=== PATIENT | female | born 1995 | race Caucasian/White ===

== ENCOUNTER → 2016-11-03 | Outpatient (REF) | payer OTHER | LOC: M LAB REF 16:39 | PROVIDERS: ATTEND Advanced Practice Midwife | DX: O36.80X0 Pregnancy with inconclusive fetal viability, not applicable or unspecified (principal) ==

== ENCOUNTER 2016-12-05 08:42 | Emergency (ER) | payer OTHER ==
[~2016-12-05] VITALS: Ht 162.6 cm; Wt 54.5 kg
[2016-12-05] MEDS ORDERED: PRENTAB55 PO (08:52)
[2016-12-05] MEDS ORDERED: ACETAMINOPHEN TAB 650MG DOSE (2X325MG) PO ONE (09:15)
[2016-12-05 09:31] LABS: BASO % 0.6 % (0.0-1.0); EOS # 0.2 K/mm3 (0.0-0.50); EOS % 2.9 % (0.0-3.0); LARGE UNSTAINED CELL # 0.1 K/mm3 (0.0-0.4); LARGE UNSTAINED CELL % 1.7 % (0.0-4.0); LYMPH # 2.2 K/mm3 (1.5-6.5); LYMPH % 38.4 % (24.0-44.0); MEAN CORPUSCULAR HEMOGLOBIN 31.5 pg (27.0-33.0); MEAN CORPUSCULAR HGB CONC 33.1 g/dl (32.0-36.5); MEAN CORPUSCULAR VOLUME 95.3 fl (80.0-96.0); MONO # 0.3 K/mm3 (0.0-0.8); MONO % 5.1 % (0.0-5.0); NEUTROPHILS # 2.9 K/mm3 (1.8-7.7); NEUTROPHILS % 51.2 % (36.0-66.0); PLATELET COUNT, AUTOMATED 231 k/mm3 (150-450); RED CELL DISTRIBUTION WIDTH 12.4 % (11.5-14.5); WHITE BLOOD COUNT 5.7 K/mm3 (4.0-10.0)
[2016-12-05 10:20] LABS: ANION GAP 4 MEQ/L (8-16); BLOOD UREA NITROGEN 10 MG/DL (7-18); CARBON DIOXIDE LEVEL 27 MEQ/L (21-32); CHLORIDE LEVEL 105 MEQ/L (98-107); CREATININE FOR GFR 0.71 MG/DL (0.55-1.02); GLUCOSE, FASTING 91 MG/DL (70-105); HCG, SERUM QUANTITATIVE 7382 MIU/ML; POTASSIUM SERUM 3.8 MEQ/L (3.5-5.1); SODIUM LEVEL 136 MEQ/L (136-145)
--- NOTE | 2016-12-05 10:25 | REP ---
Clinical: with pelvic pain. Technique: Transabdominal and transvaginal first trimester obstetrical ultrasound with color Doppler evaluation. Findings: Bladder measures approximately 8.9 x 3.0 x 5.3 cm. Anteverted uterus measures 9.1 x 4.9 x 5.6 cm and includes intrauterine gestational sac with yolk sac and heterogeneous debris without pole. Mean sac diameter of 7 mm corresponds to 4 weeks 5 days gestational age. Differential diagnosis includes early as well as spontaneous . Maternal ovaries are normal in appearance and vascularity. Right ovary measures 3.6 x 1.5 x 2.8 cm; RI = 0.59. Left ovary measures 4.1 x 2.0 x 2.9 cm; RI = 0.50. No pelvic fluid or adnexal mass lesion. Impression: Gestational sac as described above without pole. Differential diagnosis includes early as well as missed . Ectopic cannot be excluded. Correlation with serial HCG levels recommended. Signed by Mark Berry MD 12/05/2016 10:16 A
[2016-12-05 10:57] VITALS: BP 129/75
[2017-03-26] MEDS ORDERED: ACET50TA PO (14:18)
== END 2016-12-05 10:59 | disposition home or self-care (01) ==
LOC: M ED 08:42
DX: O99.89 Other specified diseases and conditions complicating pregnancy, childbirth and the puerperium (principal); R10.2 Pelvic and perineal pain; Z3A.00 Weeks of gestation of pregnancy not specified; Z79.899 Other long term (current) drug therapy

== ENCOUNTER → 2016-12-07 | Outpatient (CLI) | payer OTHER ==
[~2016-12-07] MED LIST: ACET50TA PO; PRENTAB55 PO
== END ==
LOC: M LAB 09:21
PROVIDERS: ATTEND Student in an Organized Health Care Education/Training Program
DX: O20.0 Threatened abortion (principal)

== ENCOUNTER 2017-04-23 19:42 | Emergency (ER) | payer OTHER ==
[~2017-04-23] VITALS: Ht 160 cm; Wt 59.1 kg
[2017-04-23] MEDS ORDERED: PROMETHAZINE INJ 25 MG/ML VIAL (J2550) IV ONE (20:45)
[2017-04-23] MEDS ORDERED: diphenhydrAMINE INJ 50MG/ML VIAL (J1200) IV ONE (20:45)
[2017-04-23] MEDS ORDERED: METOCLOPRAMIDE INJ 10MG/2ML VIAL (J2765) IV ONE (21:00)
[2017-04-23 21:28] LABS: BASO % 0.1 % (0.0-1.0); EOS % 0.2 % (0.0-3.0); IMMATURE GRANULOCYTE % 0.5 % (0-0); LYMPH # 0.9 10^3/uL (1.5-6.5); LYMPH % 7.4 % (24.0-44.0); MEAN CORPUSCULAR HEMOGLOBIN 30.6 pg (27.0-33.0); MEAN CORPUSCULAR HGB CONC 33.5 g/dl (32.0-36.5); MEAN CORPUSCULAR VOLUME 91.4 fl (80.0-96.0); MONO # 1.3 10^3/uL (0.0-0.8); MONO % 10.9 % (0.0-5.0); NEUTROPHILS # 9.9 10^3/uL (1.8-7.7); NEUTROPHILS % 80.9 % (36.0-66.0); PLATELET COUNT, AUTOMATED 256 10^3/uL (150-450); WHITE BLOOD COUNT 12.2 10^3/uL (4.0-10.0)
[2017-04-23 22:04] LABS: ALBUMIN 2.5 GM/DL (3.2-5.2); ALBUMIN/GLOBULIN RATIO 0.64 (1.00-1.93); ALKALINE PHOSPHATASE 179 U/L (45-117); ALT/SGPT 9 U/L (12-78); ANION GAP 11 MEQ/L (8-16); AST/SGOT 6 U/L (7-37); BILIRUBIN,TOTAL 0.3 MG/DL (0.2-1.0); BLOOD UREA NITROGEN 7 MG/DL (7-18); CALCIUM LEVEL 8.5 MG/DL (8.5-10.1); CARBON DIOXIDE LEVEL 22 MEQ/L (21-32); CHLORIDE LEVEL 102 MEQ/L (98-107); CREATININE FOR GFR 0.57 MG/DL (0.55-1.02); GLUCOSE, FASTING 76 MG/DL (70-105); HCG, SERUM QUANTITATIVE 34387 MIU/ML; POTASSIUM SERUM 3.3 MEQ/L (3.5-5.1); SODIUM LEVEL 135 MEQ/L (136-145); TOTAL PROTEIN 6.4 GM/DL (6.4-8.2)
[2017-04-23] MEDS ORDERED: KEFL500C17 PO (22:34)
[2017-04-23] MEDS ORDERED: DRAM50TA7 PO (22:35)
[2017-04-23 22:41] VITALS: BP 95/53
[2017-04-23] MEDS ORDERED: ACETAMINOPHEN TAB 650MG DOSE (2X325MG) PO ONE (22:45)
[2017-04-23] MEDS ORDERED: CEPHALEXIN 500 MG CAP PO ONE (22:45)
== END 2017-04-23 22:53 | disposition home or self-care (01) ==
LOC: M ED 19:42
DX: N39.0 Urinary tract infection, site not specified (principal); R11.10 Vomiting, unspecified
CPT/HCPCS: 80053; 81001; 83690; 84702; 85025; 96374; 96375; 99284; J1200; J2765

== ENCOUNTER 2017-05-12 21:26 | Inpatient (IN) | payer OTHER ==
[~2017-05-12] VITALS: Ht 160 cm; Wt 60.6 kg
[~2017-05-12 21:26] MED LIST changes: +DRAM50TA7 PO; +KEFL500C17 PO
[2017-05-12 21:44] VITALS: BP 106/57
[2017-05-12] MEDS ORDERED: MORPHINE 2 MG/ML 1ML SYRINGE IV PRN (22:45)
[2017-05-12] MEDS: ACETAMINOPHEN 500 MG TAB PO PRN (23:07)
[2017-05-12] MEDS: CEFTRIAXONE SOD 1 GM in APPROPRIATE DILUENT 1 EA IV SCH (23:13)
[2017-05-12 23:28] VITALS: BP 107/54
[2017-05-12] MEDS ORDERED: LR 1,000 ML IV SCH (23:30)
[2017-05-13] VITALS (8 sets, daily range): BP systolic 87–120; BP diastolic 42–59
[2017-05-13 00:44] LABS: MEAN CORPUSCULAR HEMOGLOBIN 30.7 pg (27.0-33.0); MEAN CORPUSCULAR HGB CONC 33.2 g/dl (32.0-36.5); MEAN CORPUSCULAR VOLUME 92.6 fl (80.0-96.0); PLATELET COUNT, AUTOMATED 226 10^3/uL (150-450); RED CELL DISTRIBUTION WIDTH 12.6 % (11.5-14.5)
[2017-05-13 08:01] LABS: PERCENT SATURATION 3.7 % (13.2-45.0)
[2017-05-13] MEDS: PRENATAL VITAMINS CHEWABLE TABLET PO SCH (09:00)
[2017-05-13] MEDS: ACETAMINOPHEN 500 MG TAB PO PRN ×2 (09:03→23:42)
[2017-05-13] MEDS ORDERED: FERROUS SULFATE 325MG TAB PO ONE (19:15)
[2017-05-13] MEDS ORDERED: DOCUSATE SODIUM 100 MG CAP PO ONE (19:15)
[2017-05-13] MEDS: CEFTRIAXONE SOD 1 GM in APPROPRIATE DILUENT 1 EA IV SCH (23:40)
[2017-05-14 02:00] VITALS: BP 105/53
[2017-05-14 06:00] VITALS: BP 85/45
[2017-05-14 07:14] LABS: MEAN CORPUSCULAR HEMOGLOBIN 29.6 pg (27.0-33.0); MEAN CORPUSCULAR HGB CONC 32.3 g/dl (32.0-36.5); MEAN CORPUSCULAR VOLUME 91.9 fl (80.0-96.0); PLATELET COUNT, AUTOMATED 221 10^3/uL (150-450); RED CELL DISTRIBUTION WIDTH 12.8 % (11.5-14.5); WHITE BLOOD COUNT 8.9 10^3/uL (4.0-10.0)
--- NOTE | 2017-05-14 08:02 | IPNPDOC ---
Text Note Date of Service The patient was seen on 05/14/17. NOTE Pyelonephritis Progress Note Cleve is a 21y/o G1 @ 28+wks now HD#3, admitted overnight on 05/12, for inpatient treatment of pyelonephritis with fever/flank pain and positive urinalysis with WBC count of 16. She was initiated on IV Rocephin. She has had several previous UTIs in and has been non-compliant on her PNV, at time of admission her H/H was 8.7/26.2. Overnight she had a fever to 100.9F at 22:00. She notes she never felt "warm", but rather, has felt chills and then sweaty after Tylenol broke her fever. Tolerating regular diet and voiding spontaneously without issue. Feels good movement. No VB/LOF/CTX. Her back pain is much improved. O: VSS, fever to 100.9F at 22:00 last night Gen: A&Ox3, NAD Adomen: soft, ND, NT, gravid Back: No CVAT bilaterally. Extremities: no pain with palpation of calves NST 08 14 Dec: reassuring for gest age, bl 140's, +accels, -decels, mod cristhian. No ctx. Labs: 05/14 CBC: 8.9/8/24.8/221 Hemoglobin electrophoresis pending 05/13 CBC: 16/8.7/26.2/226 urinalysis: negative nitrite, but 3+LE, WBC TNTC and 2+ bacteria iron 13, TIBC 348, transferrin % sat 37, ferritin 106 Assessment: Cleve is a 21y/o G1 @ 28+wks now HD#3 being treated with IV abx (rocephin) for pyelonephritis. Vitals wnl with exception of fever at 22:00 to 100.9F which broke with tylenol. Reassuring status on NST. Anemia noted on admission. WBC count decreased from 16 to 8.9, back pain improved. Hemodynamically stable. Plan: -Continue routine antepartum care -IV rocephin until at least 24-48 afebrile -regular diet -tylenol prn pain/fever -NSTs daily -PNV, ferrous sulfate, colace -Hgb electrophoresis pending MD Cholo Espinoza VS,Juanito, I+O VS, Juanito, I+O Laboratory Tests 05/14/17 06:57 Red Blood Count 2.70 L, Mean Corpuscular Volume 91.9, Mean Corpuscular Hemoglobin 29.6, Mean Corpuscular Hemoglobin Concent 32.3, Red Cell Distribution Width 12.8 Vital Signs Date Time Temp Pulse Resp B/P (MAP) Pulse Ox O2 Delivery O2 Flow Rate FiO2 05/14/17 06:00 96.6 05/14/17 06:00 85 17 85/45 (58) 98 Room Air I&O- Last 24 Hours up to 6 AM 05/15/17 06:00 Output Total 400 ml Balance -400 ml Moon Hameed MD May 14, 2017 08:02
[2017-05-14] MEDS: PRENATAL VITAMINS CHEWABLE TABLET PO SCH (08:24)
[2017-05-14] MEDS: DOCUSATE SODIUM 100 MG CAP PO SCH ×2 (08:24→20:40)
[2017-05-14] MEDS: FERROUS SULFATE 325MG TAB PO SCH ×2 (08:24→20:40)
[2017-05-14 10:13] VITALS: BP 98/55
[2017-05-14 17:48] VITALS: BP 103/52
[2017-05-14 22:17] VITALS: BP 110/68
[2017-05-14] MEDS: CEFTRIAXONE SOD 1 GM in APPROPRIATE DILUENT 1 EA IV SCH (22:46)
[2017-05-15 02:15] VITALS: BP 102/52
[2017-05-15] MEDS ORDERED: CEPHALEXIN 500 MG CAP PO SCH (06:00)
[2017-05-15 06:20] VITALS: BP 94/55
--- NOTE | 2017-05-15 07:33 | DS.PDOC ---
Discharge Summary General Date of Admission May 12, 2017 at 23:01 Date of Discharge [id number] Discharge Summary Discharge Summary Admission Diagnosis: Pyelonephritis at ~28 weeks Discharge Diagnosis: LUKAS Condition: stable, improved Meds on discharge: Keflex 500 mg QID 10 days then transition to Macrobid 100 mg QHS Hospital Course: 21y/o @ now ~28 wks gestation admitted on 05/12 for pyelonephritis. On Ceftriaxone q24hrs for treatment. Urine culture returned as E Coli, pansensitive. Chills/fever resolved much more than 24 hours, last T was 110.9 at 2200 on 14DEC. No further flank pain. OOB/Ambulating without issues. Home recommendations: Macrobid until 37-38 weeks after finishing Keflex treatment course. F/U in office next week. Sessions Vital Signs/I&Os Vital Signs Date Time Temp Pulse Resp B/P (MAP) Pulse Ox O2 Delivery O2 Flow Rate FiO2 05/15/17 06:20 96.2 93 19 94/55 (68) 05/14/17 06:00 98 Room Air Microbiology Microbiology 05/12/17 Urine Culture - Final, Complete Escherichia Coli Discharge Medications Scheduled PRN Acetaminophen (Mapap) 500 Mg Tab, 1,000 MG PO for PAIN OR FEVER, (Reported) Allergies Coded Allergies: No Known Allergies (Unverified , 12/05/16) SESSIONSMORENA MD May 15, 2017 07:33
--- NOTE | 2017-05-15 07:37 | IPNPDOC ---
Text Note Date of Service The patient was seen on 05/15/17. NOTE Pyelonephritis Progress Note Cleve is a 21y/o G1 @ 28+wks now HD#4, admitted overnight on 05/12, for inpatient treatment of pyelonephritis with fever/flank pain and positive urinalysis with WBC count of 16. She was initiated on IV Rocephin. She has had several previous UTIs in and has been non-compliant on her PNV. Overnight she has had no fevers, last fever 100.9F at 22:00 on 14DEC. Now feels completely better. Tolerating regular diet and voiding spontaneously without issue. Feels good movement. No VB/LOF/CTX. O: VSS >24 hrs Gen: A&Ox3, NAD Adomen: soft, ND, NT, gravid Back: No CVAT bilaterally. Extremities: no CCE. Labs: 05/14 CBC: 8.9/8/24.8/221 05/13 CBC: 16/8.7/26.2/226 urinalysis: negative nitrite, but 3+LE, WBC TNTC and 2+ bacteria iron 13, TIBC 348, transferrin % sat 37, ferritin 106 Assessment: Cleve is a 21y/o G1 @ 28+wks now HD#3 being treated with IV abx (rocephin) for pyelonephritis. Vitals wnl. Reassuring status on NST. Anemia noted on admission. WBC count decreased from 16 to 8.9, back pain improved. Hemodynamically stable. Discharge on Keflex 10 days and then Macrobid 1 tab qhs until 37-38 weeks. Ferrous Sulfate as well. VS,Fishbone, I+O VS, Fishbone, I+O Vital Signs Date Time Temp Pulse Resp B/P (MAP) Pulse Ox O2 Delivery O2 Flow Rate FiO2 05/15/17 06:20 96.2 93 19 94/55 (68) 05/14/17 06:00 98 Room Air SESSIONS,MORENA Gandhi MD May 15, 2017 07:37
[2017-05-15] MEDS ORDERED: KEFL500C17 PO (07:53)
[2017-05-15] MEDS ORDERED: PRENTAB9 PO (07:53)
[2017-05-15] MEDS ORDERED: FERR325T3 PO (07:53)
[2017-05-15] MEDS ORDERED: COLA100C5 PO (07:53)
[2017-05-15] MEDS: DOCUSATE SODIUM 100 MG CAP PO SCH (08:19)
[2017-05-15] MEDS: FERROUS SULFATE 325MG TAB PO SCH (08:19)
[2017-05-15] MEDS: PRENATAL VITAMINS CHEWABLE TABLET PO SCH (08:19)
[2017-05-17 08:06] LABS: HEMOGLOBIN A 97.8 % (94.0-98.0)
== END 2017-05-15 08:55 | disposition home or self-care (01) | DRG 781 ==
LOC: M LDO 21:26 → M OBS 23:01
PROVIDERS: ADMIT Student in an Organized Health Care Education/Training Program; ATTEND Student in an Organized Health Care Education/Training Program
DX: O23.03 Infections of kidney in pregnancy, third trimester (principal); N10 Acute pyelonephritis; Z3A.28 28 weeks gestation of pregnancy; B96.29 Other Escherichia coli [E. coli] as the cause of diseases classified elsewhere

== ENCOUNTER 2017-06-26 17:27 | Outpatient (CLI) | payer OTHER | END 2017-06-26 18:34 | disposition home or self-care (01) | LOC: M LDO 17:27 | DX: O26.893 Other specified pregnancy related conditions, third trimester (principal); Z71.1 Person with feared health complaint in whom no diagnosis is made; Z3A.34 34 weeks gestation of pregnancy | CPT/HCPCS: 76815 ==

== ENCOUNTER 2017-07-13 22:40 | Outpatient (CLI) | payer OTHER | END 2017-07-13 23:45 | disposition home or self-care (01) | LOC: M LDO 22:40 | DX: O26.893 Other specified pregnancy related conditions, third trimester (principal); Z3A.36 36 weeks gestation of pregnancy; O62.0 Primary inadequate contractions; O47.03 False labor before 37 completed weeks of gestation, third trimester | CPT/HCPCS: 76815 ==

== ENCOUNTER 2017-07-28 18:28 | Outpatient (CLI) | payer OTHER | END 2017-07-28 19:18 | disposition home or self-care (01) | LOC: M LDO 18:28 | DX: O47.1 False labor at or after 37 completed weeks of gestation (principal); Z3A.39 39 weeks gestation of pregnancy | CPT/HCPCS: 59025 ==

== ENCOUNTER 2017-07-28 22:04 | Inpatient (IN) | payer OTHER ==
[2017-07-29] MEDS: LACTATED RINGER'S 1000 ML IV (02:18)
[2017-07-29 02:30] LABS: HEMOGLOBIN 10.4 g/dl (12.0-16.0); MEAN CORPUSCULAR HEMOGLOBIN 29.6 pg (27.0-33.0); MEAN CORPUSCULAR HGB CONC 33.5 g/dl (32.0-36.5); MEAN CORPUSCULAR VOLUME 88.3 fl (80.0-96.0); PLATELET COUNT, AUTOMATED 221 10^3/uL (150-450); RED BLOOD COUNT 3.51 10^6/uL (4.00-5.40); RED CELL DISTRIBUTION WIDTH 13.1 % (11.5-14.5); WHITE BLOOD COUNT 12.7 10^3/uL (4.0-10.0)
[2017-07-29] MEDS ORDERED: FENTANYL 2MCG/ML ROPIVACAINE 0.2% IN 0.9% NACL 200ML IVBAG As Ordered (03:17)
[2017-07-29] MEDS: LR 1,000 ML IV ×2 (04:03→14:01)
[2017-07-29] MEDS ORDERED: EPIDURAL COMMENT XX (04:30)
[2017-07-29] MEDS ORDERED: NALOXONE INJ 0.4 MG/1 ML VIAL (J2310) IV (04:30)
[2017-07-29] MEDS ORDERED: EPIDURAL/PCA KEYS XX (04:30)
[2017-07-29] MEDS ORDERED: ONDANSETRON 4MG/2ML VIAL (J2405) IV (04:30)
[2017-07-29] MEDS ORDERED: diphenhydrAMINE INJ 50MG/ML VIAL (J1200) IV (04:30)
[2017-07-29] MEDS ORDERED: ePHEDrine SULFATE 25 MG/5 ML(5MG/ML) SYRINGE IV (04:30)
[2017-07-29] MEDS ORDERED: REFRIGERATOR IV KEYS XX (04:30)
[2017-07-29] MEDS ORDERED: LACTATED RINGER'S 1000 ML IV (04:30)
[2017-07-29] MEDS ORDERED: OXYTOCIN 30 UNITS IN 0.9% NaCl 500ML IV BAG (J2590) As Ordered (10:05)
[2017-07-29] MEDS: ACETAMINOPHEN 500 MG TAB PO (12:13)
[2017-07-29] MEDS: BUTORPHANOL 2 MG/ML INJ (J0595) IV (14:00)
[2017-07-29] MEDS: FENTANYL/ROPIVACAINE/NACL BAG 200 ML EPIDURAL (14:00)
[2017-07-29] MEDS ORDERED: OXYTOCIN DRIP 30 UNITS in APPROPRIATE DILUENT 1 EA IV (14:30)
[2017-07-30] MEDS ORDERED: DIBUCAINE 1% OINTMENT 30GM TOP (07:45)
[2017-07-30] MEDS ORDERED: RHOGAM 300 MCG (1500 IU) INJ (J2790) IM (07:45)
[2017-07-30] MEDS ORDERED: ACETAMINOPHEN TAB 650MG DOSE (2X325MG) PO (07:45)
[2017-07-30] MEDS ORDERED: METOCLOPRAMIDE INJ 10MG/2ML VIAL (J2765) IV (07:45)
[2017-07-30] MEDS ORDERED: MEASLES,MUMPS,RUBELLA VACCINE INJ (MMR-II) (90707) SC (07:45)
[2017-07-30] MEDS: OXYTOCIN DRIP 30 UNITS in APPROPRIATE DILUENT 1 EA IV (08:11)
[2017-07-30] MEDS: IBUPROFEN 800 MG TAB PO (08:22)
[2017-07-30] MEDS: PRENATAL VITAMINS CHEWABLE TABLET PO (08:22)
[2017-07-30] MEDS: DOCUSATE SODIUM 100 MG CAP PO ×2 (08:22→21:00)
[2017-07-31] MEDS: DOCUSATE SODIUM 100 MG CAP PO (08:19)
[2017-07-31] MEDS: PRENATAL VITAMINS CHEWABLE TABLET PO (08:19)
[2017-07-31] MEDS: IBUPROFEN 800 MG TAB PO (08:21)
== END 2017-07-31 12:55 | disposition home or self-care (01) | DRG 775 ==
LOC: M LDO 22:04 → M LDI 07-29 01:30 → M OBS 07-29 14:01
PROVIDERS: Obstetrics & Gynecology
PROC: 10E0XZZ Delivery of Products of Conception, External Approach (ICD-10-PCS; principal; 2017-07-29)
PROC: 10907ZC Drainage of Amniotic Fluid, Therapeutic from Products of Conception, Via Natural or Artificial Opening (ICD-10-PCS; 2017-07-29)
DX: O80 Encounter for full-term uncomplicated delivery (principal); Z37.0 Single live birth; Z3A.39 39 weeks gestation of pregnancy